=== PATIENT | male | born 1960 | race Caucasian/White ===

== ENCOUNTER → 2022-11-22 | Emergency (ER) | payer MEDICAID ==
[~2022-11-22] VITALS: Ht 177.8 cm; Wt 170.0 kg
[~2022-11-22] MED LIST: ALBU6.7H14 INH; ASCO-134 PO; ATOR20TA66 PO; BACL-11 PO; CEFA2PLA9 IV; CHLO1LIQ2 PO; DOCU283E RC; FLO0.4C PO; FOLI1TAB27 PO; HYDR-3965 PO; HYDROcodone/acetaminophen 5mg/325mg tablet PO PRN; INSU100V43 SQ; INSU100V56 SQ; LACT1CAP26 PO; LIDO5CRE18 TOP; LOP25T PO; LORA-269 PO; LYR75C PO; MELA3TAB70 PO; ONDA4TAB12 PO; POLY119P2 PO; RIFA300C9 PO; SENN-263 PO; SIME80TA15 PO; SODI473S26 TOP; ZINC220C7 PO; acetaminophen 325mg tablet PO PRN; acetaminophen 650mg rectal suppository RC PRN; bisacodyl 10mg suppository rectal RC PRN; cefazolin/dext.iso 2gm/100ml 100 ML IV SCH; diphenhydrAMINE 25mg capsule PO PRN; mag hydrox/Alum hydrox/simeth 30ml oral suspension PO PRN; magnesium 4gm in 100ml NS 100 ML IV PRN; magnesium Cl slow-release 64mg tablet PO PRN; magnesium hydroxide 30ml (MOM) UD suspension PO PRN; morphine 2 MG/ML inj. syringe IV PRN; morphine 4 MG/ML inj SYRINge IV PRN; ondansetron/PF 4mg/2ml inj IV ONE; ondansetron/PF 4mg/2ml inj IV PRN; potassium Cl 20 mEq SR tablet PO PRN; potassium Cl 40MEQ/1/2NS 520ml 520 ML IV PRN; rifampin 300mg capsule PO SCH
[2022-11-22] MEDS: ringers solution, lacted 1,000 ML IV SCH (16:20)
[2022-11-22 16:45] LABS: BASOPHILS % (AUTO) 0.5 % (0-1); EOSINOPHILS # (AUTO) 0.3 X10'3 (0-0.9); EOSINOPHILS % (AUTO) 3.5 % (0-6); HEMATOCRIT 35.8 % (42.0-52.0); HEMOGLOBIN 11.8 g/dl (14.0-17.9); LYMPHOCYTES # (AUTO) 2.1 X10'3 (1.1-4.8); LYMPHOCYTES % (AUTO) 22.9 % (21-51); MEAN CORPUSCULAR HEMOGLOBIN 28.6 PG (27.0-31.0); MEAN CORPUSCULAR VOLUME 86.7 FL (78-98); MEAN PLATELET VOLUME 7.3 FL (7.4-10.4); MONOCYTES # (AUTO) 0.8 X10'3 (0-0.9); MONOCYTES % (AUTO) 8.6 % (2-12); NEUTROPHILS # (AUTO) 5.9 X10'3 (1.8-7.7); NEUTROPHILS % (AUTO) 64.5 % (42-75); PLATELET COUNT 392 X10'3 (140-440); RED BLOOD COUNT 4.13 X10'6 (4.70-6.10); RED CELL DISTRIBUTION WIDTH 17.9 % (11.5-14.5); WHITE BLOOD COUNT 9.1 X10'3 (4.5-11.0)
[2022-11-22 16:56] LABS: ALANINE AMINOTRANSFERASE 56 U/L (12-78); ALBUMIN 2.4 G/DL (3.4-5.0); ALBUMIN/GLOBULIN RATIO 0.5 (1.1-1.5); ALKALINE PHOSPHATASE 432 IU/L (46-116); ANION GAP 10 (8-16); ASPARTATE AMINO TRANSFERASE 39 U/L (10-37); BILIRUBIN,TOTAL 0.1 MG/DL (0.1-1.0); BLOOD UREA NITROGEN 26 MG/DL (7-18); BUN/CREATININE RATIO 30.2 (5.4-32.0); CALCIUM 8.9 MG/DL (8.5-10.1); CHLORIDE 103 MMOL/L (99-107); CREATININE 0.86 MG/DL (0.60-1.10); GLUCOSE 267 MG/DL (70-104); POTASSIUM 4.4 MMOL/L (3.5-5.1); SODIUM 135 MMOL/L (135-145); TOTAL CARBON DIOXIDE 22.3 MMOL/L (24-32); TOTAL PROTEIN 7.5 G/DL (6.4-8.2); eGFR > 90 ML/MIN
[2022-11-22] MEDS: normal saline 1000ml 1,000 ML IV SCH (17:00)
--- NOTE | 2022-11-22 17:09 | NUR ---
first contact. ao4 no resp issues no cp/sob. coccyx dressing dry and intact. ok to feed per provider
[2022-11-22] MEDS: ceFAZolin/D5W- 1GM premix 50 ML IV SCH (17:15)
--- NOTE | 2022-11-22 18:33 | NUR ---
report to vince glasgow for continuation of care
[2022-11-22] MEDS: K and/or MAG REPLACEMENT MC SCH (20:00)
[2022-11-22] MEDS: heparin, porcine 5000 units/ml vial SQ SCH (21:02)
[2022-11-22] MEDS: docusate sod 100mg capsule PO SCH (21:02)
[2022-11-22] MEDS: HYDROcodone/acetaminophen 10/325mg tab PO PRN (21:27)
--- NOTE | 2022-11-22 21:30 | NUR ---
PT WAS PROVIDED PO MEDICATION (MEDICATION ADMINISTRATION WAS APPROVED BY [facility]), AND A SANDWHICH WAS GIVEN TO THE PT WELL. PT WAS SAT UP IN [facility] TO EAT THE SANDWHICH, AND THEN ASKED TO BE LOWERED DOWN. PT WAS EDUCATED THAT HE WAS UNABLE TO BE LAID DOWN DUE TO HIM CURRENTLY EATING AND HIS INCREASED RISK OF ASPIRATION. THE PT WAS TOLD THAT HE WOULD HAVE TO WAIT 15 MINUTES BEFORE HE WAS LAID BACK IN BED. OTHER PT TASKS WERE COMPLETED WHILE I WAS IN THE ROOM. THE PT STARTED YELLING AT ME AND REFERRING TO ME A BITCH BECAUSE I WOULDN'T PUT HIS HEAD OF THE BED DOWN. PT WAS SPOKEN TO ABOUT HIS LANGUAGE, AND WAS TOLD TO REFRAIN FROM YELLING AT STAFF. CHARGE NURSE NOTIFIED.
[2022-11-23] VITALS (8 sets, daily range): BP systolic 121–151; BP diastolic 74–92
[2022-11-23] MEDS: ceFAZolin/D5W- 1GM premix 50 ML IV SCH ×2 (00:08→08:04)
[2022-11-23] MEDS: ringers solution, lacted 1,000 ML IV SCH ×2 (02:20→07:39)
[2022-11-23 04:41] LABS: BASOPHILS % (AUTO) 0.4 % (0-1); EOSINOPHILS # (AUTO) 0.3 X10'3 (0-0.9); EOSINOPHILS % (AUTO) 3.5 % (0-6); HEMATOCRIT 36.5 % (42.0-52.0); HEMOGLOBIN 11.8 g/dl (14.0-17.9); LYMPHOCYTES # (AUTO) 2.4 X10'3 (1.1-4.8); LYMPHOCYTES % (AUTO) 27.8 % (21-51); MEAN CORPUSCULAR HGB CONC 32.5 g/dL (33.0-36.5); MEAN CORPUSCULAR VOLUME 86.3 FL (78-98); MEAN PLATELET VOLUME 7.2 FL (7.4-10.4); MONOCYTES # (AUTO) 0.9 X10'3 (0-0.9); MONOCYTES % (AUTO) 10.7 % (2-12); NEUTROPHILS # (AUTO) 5.1 X10'3 (1.8-7.7); NEUTROPHILS % (AUTO) 57.6 % (42-75); PLATELET COUNT 343 X10'3 (140-440); RED BLOOD COUNT 4.22 X10'6 (4.70-6.10); RED CELL DISTRIBUTION WIDTH 17.9 % (11.5-14.5); WHITE BLOOD COUNT 8.8 X10'3 (4.5-11.0)
[2022-11-23 05:07] LABS: ALANINE AMINOTRANSFERASE 50 U/L (12-78); ALBUMIN 2.5 G/DL (3.4-5.0); ALBUMIN/GLOBULIN RATIO 0.5 (1.1-1.5); ALKALINE PHOSPHATASE 403 IU/L (46-116); ANION GAP 9 (8-16); ASPARTATE AMINO TRANSFERASE 31 U/L (10-37); BILIRUBIN,TOTAL 0.1 MG/DL (0.1-1.0); BLOOD UREA NITROGEN 25 MG/DL (7-18); BUN/CREATININE RATIO 33.8 (5.4-32.0); CALCIUM 9.2 MG/DL (8.5-10.1); CHLORIDE 104 MMOL/L (99-107); CREATININE 0.74 MG/DL (0.60-1.10); GLUCOSE 102 MG/DL (70-104); MAGNESIUM 1.8 MG/DL (1.5-2.4); PHOSPHORUS 4.5 MG/DL (2.3-4.5); POTASSIUM 4.3 MMOL/L (3.5-5.1); SODIUM 137 MMOL/L (135-145); TOTAL CARBON DIOXIDE 24.3 MMOL/L (24-32); TOTAL PROTEIN 7.4 G/DL (6.4-8.2); eGFR > 90 ML/MIN
[2022-11-23] MEDS: normal saline 1000ml 1,000 ML IV SCH (07:17)
[2022-11-23] MEDS: K and/or MAG REPLACEMENT MC SCH (07:37)
[2022-11-23] MEDS: heparin, porcine 5000 units/ml vial SQ SCH (07:38)
[2022-11-23] MEDS: docusate sod 100mg capsule PO SCH (07:48)
[2022-11-23] MEDS: HYDROcodone/acetaminophen 10/325mg tab PO PRN ×2 (07:53→12:07)
--- NOTE | 2022-11-23 11:10 | NUR ---
pt in ER rm #[id number], recd. report from ENRIQUETA Wilson, pt will be going to room 1336A before returning to [facility] as pt's sx. cancelled.
--- NOTE | 2022-11-23 11:15 | NUR ---
pt came in on hospital bed, VSS and pt is in stable condition, pt c/o of pain in his neck, let him know that I will give him his [employer] [address].
--- NOTE | 2022-11-23 13:45 | NUR ---
gave pt report to Anila díaz [facility] that pt will be coming back.
--- NOTE | 2022-11-23 14:05 | NUR ---
Cynthia barajas picked up and returned to [facility] via [facility].
== END | disposition admitted as inpatient to this hospital (09) ==
LOC: ER 16:10 → ED HOLD 17:14 → UNDOADMIN 17:14
DX: M46.28 Osteomyelitis of vertebra, sacral and sacrococcygeal region (principal); Z20.822 Contact with and (suspected) exposure to COVID-19; M46.22 Osteomyelitis of vertebra, cervical region; R19.5 Other fecal abnormalities; E11.9 Type 2 diabetes mellitus without complications; F15.20 Other stimulant dependence, uncomplicated; I10 Essential (primary) hypertension; Z87.891 Personal history of nicotine dependence
CPT/HCPCS: 36415; 71045; 80053; 83735; 84100; 85025; 85610; 86885; 86900; 86901; 87811; 93005; 96361; 96365; 96375; 99285; J0690; J1644; J2270; J2405; J7120; 96360; 96366; G0378

== ENCOUNTER 2022-12-14 12:45 | Inpatient (IN) | payer MEDICAID ==
[~2022-12-14] VITALS: Ht 177.8 cm; Wt 83.0 kg
[~2022-12-14 12:45] MED LIST changes: -CEFA2PLA9 IV; +COLL30OI TOP; -DOCU283E RC; +DOCUMENT DATE & TIME OF BETA-BLOCKER PO ONE; +ENOX80SY7 SUBCUT; -HYDROcodone/acetaminophen 5mg/325mg tablet PO PRN; -INSU100V56 SQ; +INSU100V9 SQ; -ONDA4TAB12 PO; -RIFA300C9 PO; -acetaminophen 325mg tablet PO PRN; -acetaminophen 650mg rectal suppository RC PRN; -bisacodyl 10mg suppository rectal RC PRN; +ceFOXitin 2GM-NS 100mL ADDvant 100 ML IV ONE; -cefazolin/dext.iso 2gm/100ml 100 ML IV SCH; -diphenhydrAMINE 25mg capsule PO PRN; +famotidine 20mg tablet PO ONE; -mag hydrox/Alum hydrox/simeth 30ml oral suspension PO PRN; -magnesium 4gm in 100ml NS 100 ML IV PRN; -magnesium Cl slow-release 64mg tablet PO PRN; -magnesium hydroxide 30ml (MOM) UD suspension PO PRN; -morphine 2 MG/ML inj. syringe IV PRN; -morphine 4 MG/ML inj SYRINge IV PRN; -ondansetron/PF 4mg/2ml inj IV ONE; -ondansetron/PF 4mg/2ml inj IV PRN; -potassium Cl 20 mEq SR tablet PO PRN; -potassium Cl 40MEQ/1/2NS 520ml 520 ML IV PRN; -rifampin 300mg capsule PO SCH; +ringers solution, lacted 1,000 ML IV SCH
[2022-12-21] VITALS (24 sets, daily range): BP systolic 100–139; BP diastolic 57–91
[2022-12-21] MEDS ORDERED: ringers solution, lacted 1,000 ML IV SCH ×2 (05:00→11:40)
[2022-12-21] MEDS ORDERED: famotidine 20mg tablet PO ONE (05:30)
[2022-12-21] MEDS ORDERED: ceFOXitin 2GM-NS 100mL ADDvant 100 ML IV ONE (05:30)
[2022-12-21] MEDS ORDERED: DOCUMENT DATE & TIME OF BETA-BLOCKER PO ONE (05:30)
[2022-12-21] MEDS ORDERED: hydrALAZINE 20mg/ml inj. IV PRN (11:40)
[2022-12-21] MEDS ORDERED: morphine 4 MG/ML inj SYRINge IV PRN (11:40)
[2022-12-21] MEDS ORDERED: fentaNYL/PF 50MCG/1 ML 2ML syringe IV PRN (11:40)
[2022-12-21] MEDS ORDERED: ondansetron/PF 4mg/2ml inj IV PRN ×2 (11:40→14:55)
[2022-12-21] MEDS ORDERED: labetalol 20mg/4ml (5mg/ml) syringe IV PRN (11:40)
[2022-12-21] MEDS ORDERED: morphine 2 MG/ML inj. syringe IV PRN (11:40)
[2022-12-21] MEDS ORDERED: HYDROmorphone 1 mg/ml syringe IV STA (14:38)
[2022-12-21] MEDS ORDERED: Lidocaine Cream TOP PRN (14:50)
[2022-12-21] MEDS ORDERED: LORazepam 1 MG tablet PO PRN (14:50)
[2022-12-21] MEDS ORDERED: albuterol 2.5 MG/3 ML nebule NEB PRN (14:50)
[2022-12-21] MEDS ORDERED: dextrose 50%-water 50ml dispensing syringe IV PRN ×2 (14:55)
[2022-12-21] MEDS ORDERED: potassium Cl 40MEQ/1/2NS 520ml 520 ML IV PRN (14:55)
[2022-12-21] MEDS ORDERED: acetaminophen 325mg tablet PO PRN (14:55)
[2022-12-21] MEDS ORDERED: insulin Lispro (HumaLOG) vial - multi-dose SQ SCH (14:55)
[2022-12-21] MEDS ORDERED: potassium Cl 20 mEq SR tablet PO PRN ×2 (14:55)
[2022-12-21] MEDS ORDERED: glucagon, human recombinant 1mg kit SUBCUT PRN (14:55)
[2022-12-21] MEDS ORDERED: mag hydrox/Alum hydrox/simeth 30ml oral suspension PO PRN (14:55)
[2022-12-21] MEDS ORDERED: HYDROmorphone/PF 0.2 MG/ML SYRINGE IV PRN (14:55)
[2022-12-21] MEDS ORDERED: DEXTROSE 15 GM of carb/4 tabs (each vial/BOTTLE has 4 tablets) PO PRN ×2 (14:55)
[2022-12-21] MEDS ORDERED: MESSAGE TO PHARMACY PO ONE (14:55)
[2022-12-21] MEDS ORDERED: magnesium 4gm in 100ml NS 100 ML IV PRN (14:55)
[2022-12-21] MEDS ORDERED: dexamethasone sod phosphate 10mg/ml inj ONE (15:00)
[2022-12-21] MEDS ORDERED: sevoflurane 250ml liquid IH ONE (15:00)
[2022-12-21] MEDS ORDERED: PHENYLephrine 10mg/ml 5ml injection IV ONE (15:00)
[2022-12-21] MEDS ORDERED: midazolam 1 mg/ML 2ml injection ONE (15:13)
[2022-12-21] MEDS ORDERED: fentaNYL/PF 50MCG/1 ML 2ML syringe ONE ×2 (15:13→16:32)
[2022-12-21] MEDS ORDERED: rocuronium 10mg/ml inj IV ONE ×2 (15:24→16:14)
[2022-12-21] MEDS ORDERED: propofol inj 20 ML IV ONE (15:24)
[2022-12-21] MEDS ORDERED: polyethylene glycol 3350 17gm powd pack PO PRN (15:26)
[2022-12-21] MEDS ORDERED: LIDOcaine 1%/PF 5ML 10 MG/ML VIAL ONE (15:26)
[2022-12-21] MEDS ORDERED: ondansetron/PF 4mg/2ml inj ONE (15:26)
[2022-12-21] MEDS ORDERED: neostigmine methylsulfate 1 MG/ML 10ml vial ONE (15:27)
[2022-12-21] MEDS ORDERED: glycopyrrolate 0.2mg/ml inj ONE (15:27)
[2022-12-21] MEDS: baclofen 10mg tablet PO SCH ×2 (16:00→23:45)
--- NOTE | 2022-12-21 16:55 | NUR ---
Received from OR via [facility], accompanied by Anesthesiologist DR BOGGS and report given by Anesthesiolgist. NPT IS AWAKE, FOLLOWING COMMANDS AND ANSWERING QUESTIONS APPROPRIATELY. PT PLACED ON BEDSIDE MONITOR, VSS. PT IN SR WITH RATE IN 80'S. PT RECEIVING 8L O2 TO MASK AND TOLERATING WELL WITH O2 SAT >96%. PT HAS PICC TO LEFT UPPER ARM WITH LR INFUSING ORDERED. PT HAS NEW COLOSTOMY TO RT UPPER ABD. STOMA IS BEEFY RED IN COLOR AND THERE IS SMALL AMOUNT OF SANGUINEOUS DRAINAGE NOTED IN BAG. PT HAS C-COLLAR ON FROM PREVIOUS SURGERY AND HOSPITAL. PT IS ABLE TO MOVE ALL EXTREMITIES. PT STATES PAIN IS AT TOLERABLE LEVEL AT THIS TIME. WILL CONTINUE TO ASSESS
[2022-12-21] MEDS: simethicone 80mg chew tab PO SCH ×2 (17:00→20:35)
[2022-12-21] MEDS: fentaNYL/PF 50MCG/1 ML 2ML syringe IV PRN ×2 (17:23→17:52)
--- NOTE | 2022-12-21 19:36 | NUR ---
REPORT GIVEN TO DUARTE ROBISON AND ALL QUESTIONS ANSWERED. PATIENT TRANSFERRED TO SURG. LABELED BELONGINGS PRESENT AND DELIVERED TO ROOM. RN PRESENT ALL CRITERIA FOR TRANSFER BACK TO THE FLOOR HAS BEEN ACHIEVED. VSS. PAIN AT A TOLERABLE LEVEL. BED LOW, CALL LIGHT PRESENT AND 2 RAILS DOWN. RN AWARE THAT PATIENT HAS ARRIVED. TO ACCEPT CARE OF PATIENT.
[2022-12-21] MEDS: K and/or MAG REPLACEMENT MC SCH (19:43)
[2022-12-21] MEDS: metoprolol tartrate 25mg tablet PO SCH ×2 (20:00→20:36)
[2022-12-21] MEDS: docusate sod 100mg capsule PO SCH (20:37)
[2022-12-21] MEDS: pregabalin 75mg capsule PO SCH (20:37)
[2022-12-21] MEDS: chlorhexidine gluconate 15ml Cup****oral rinse MM SCH (20:43)
[2022-12-21] MEDS ORDERED: Melatonin 3mg tablet PO PRN (21:00)
[2022-12-21] MEDS ORDERED: atorvastatin 20mg tablet PO SCH (21:00)
[2022-12-21] MEDS ORDERED: insulin glargine (Lantus) pen - multi-dose SQ SCH (21:00)
[2022-12-22 00:15] VITALS: BP 96/57
[2022-12-22] MEDS: HYDROmorphone inj. 0.5 MG/0.5 ML DISP.SYRIN IV PRN ×3 (01:14→12:59)
[2022-12-22 02:00] VITALS: BP 103/60
--- NOTE | 2022-12-22 06:17 | NUR ---
Patient in room [facility] 346. I have received report from Cordell nichols and had the opportunity to ask questions and assume patient care.
[2022-12-22 06:35] VITALS: BP 110/64
[2022-12-22 06:36] LABS: BASOPHILS % (AUTO) 0.1 % (0-1); EOSINOPHILS % (AUTO) 0.1 % (0-6); HEMATOCRIT 38.9 % (42.0-52.0); HEMOGLOBIN 12.8 g/dl (14.0-17.9); LYMPHOCYTES # (AUTO) 1.7 X10'3 (1.1-4.8); LYMPHOCYTES % (AUTO) 13.7 % (21-51); MEAN CORPUSCULAR HEMOGLOBIN 28.8 PG (27.0-31.0); MEAN CORPUSCULAR HGB CONC 32.9 g/dL (33.0-36.5); MEAN CORPUSCULAR VOLUME 87.5 FL (78-98); MEAN PLATELET VOLUME 8.5 FL (7.4-10.4); MONOCYTES # (AUTO) 0.9 X10'3 (0-0.9); MONOCYTES % (AUTO) 6.9 % (2-12); NEUTROPHILS # (AUTO) 9.9 X10'3 (1.8-7.7); NEUTROPHILS % (AUTO) 79.2 % (42-75); PLATELET COUNT 259 X10'3 (140-440); RED BLOOD COUNT 4.44 X10'6 (4.70-6.10); RED CELL DISTRIBUTION WIDTH 15.1 % (11.5-14.5); WHITE BLOOD COUNT 12.5 X10'3 (4.5-11.0)
--- NOTE | 2022-12-22 06:42 | NUR ---
PAGER ID: [phone] MESSAGE: DorisB- Ishan Verde- received report pt came from [facility] with PICC. ok to use?- Shashi [phone]
[2022-12-22 06:54] LABS: ALANINE AMINOTRANSFERASE 86 U/L (12-78); ALBUMIN/GLOBULIN RATIO 0.7 (1.1-1.5); ALKALINE PHOSPHATASE 334 IU/L (46-116); ANION GAP 14 (8-16); ASPARTATE AMINO TRANSFERASE 27 U/L (10-37); BILIRUBIN,TOTAL 0.3 MG/DL (0.1-1.0); BLOOD UREA NITROGEN 27 MG/DL (7-18); BUN/CREATININE RATIO 28.4 (5.4-32.0); CALCIUM 9.2 MG/DL (8.5-10.1); CHLORIDE 105 MMOL/L (99-107); CREATININE 0.95 MG/DL (0.60-1.10); GLUCOSE 155 MG/DL (70-104); MAGNESIUM 1.8 MG/DL (1.5-2.4); SODIUM 140 MMOL/L (135-145); TOTAL CARBON DIOXIDE 21.2 MMOL/L (24-32); TOTAL PROTEIN 7.3 G/DL (6.4-8.2); eGFR 81 ML/MIN
[2022-12-22] MEDS: simethicone 80mg chew tab PO SCH ×2 (07:00→12:00)
[2022-12-22 07:30] LABS: HEMOGLOBIN A1C 5.8 % (4.5-6.2)
[2022-12-22] MEDS: chlorhexidine gluconate 15ml Cup****oral rinse MM SCH (08:00)
[2022-12-22] MEDS ORDERED: enoxaparin 40mg/0.4ml syringe SUBCUT SCH (08:00)
[2022-12-22] MEDS ORDERED: ZINC SULFATE 50 MG CAPSULE PO SCH (08:00)
[2022-12-22] MEDS: K and/or MAG REPLACEMENT MC SCH (08:00)
[2022-12-22] MEDS ORDERED: folic acid 1mg tablet PO SCH (08:00)
[2022-12-22] MEDS ORDERED: tamsulosin 0.4mg capsule PO SCH (08:00)
[2022-12-22] MEDS ORDERED: ascorbic acid 500mg tablet PO SCH (08:00)
[2022-12-22] MEDS: docusate sod 100mg capsule PO SCH (08:28)
[2022-12-22] MEDS: pregabalin 75mg capsule PO SCH (08:29)
[2022-12-22] MEDS: baclofen 10mg tablet PO SCH (08:29)
[2022-12-22] MEDS: metoprolol tartrate 25mg tablet PO SCH (08:29)
--- NOTE | 2022-12-22 08:47 | NUR ---
Patient non compliant and refusing care. Patient not allowing to have physical assessment completed. Patient states "I just want to sleep. You're not going to fucking do anything to me. I can do this shit at [facility]." Patient did allow to have colostomy bag burped as it had filled up with gas but did not allow any further assessment or care. Patient cussing and yelling. Patient stated "don't even wake me up. Give me my pain medication just right in here (patient pointing to IV). Will continue to monitor.
--- NOTE | 2022-12-22 10:55 | NUR ---
OSTOMY FACTS: Almost everyone has know of, or met, businessmen, entertainers, athletes, and people from all walks of life who have an ostomy. Ostomates (a person that has an ostomy) can ski, ride horses, bowl, and get healthy exercise in countless ways. Your usual activities of daily living can be resumed as soon as you are able. Gradually you will be able to wear the clothes worn before surgery. With modern pouches, nothing is noticeable under your clothing. It may be difficult at first to believe that an intimate relationship can be possible when one's body has been disfigured by surgery. This is not true. Love, fortunately, is not easily destroyed when it is based on genuine appreciation of a person as a thinking, feeling, reacting human being. AN OSTOMY IS NOT AN IMPAIRMENT!! DEFINITIONS: 1.OSTOMY: An opening that is created by a surgical procedure. The opening is called a "stoma". 2.STOMA: A surgical opening in the abdomen (belly) where intestine is brought through the abdominal wall and connected at the skin level. A stoma is shiny, wet and at first is dark purple but eventually turns pink, similar to the inside lining of your mouth. 3.COLON: A portion of the large bowel. 4.COLOSTOMY: A fecal diversion with an opening, (stoma) created anywhere along the colon. Making a connection between the colon and the abdominal wall. 5.ILLEOSTOMY: A fecal diversion with an opening, (stoma) created in the small intestine. Making a connection between the small intestine and the abdominal wall. 6.UROSTOMY: A urinary diversion with the ureters connected to a segment of the small bowel and one end is brought out and connected to the abdominal wall, creating a stoma. SHAPES and SIZES: "The stoma is usually round or oval. "It is anywhere from a dime to half dollar in size. "A stoma reaches its permanent size 6-8 weeks after surgery. PRODUCTS: 1.POUCH or APPLIANCE: An external device to contain stool or urine output and protect the skin around the stoma. It can be a one piece pouch or two pieces (a pouch and a wafer). 2.BARRIER: Substance that is used to protect the skin around the stoma from drainage and adhesive. 3.SKIN PREP or SEALANT: Product applied to the skin to reduce injury from moisture, drainage, or repeated pouch removal. Available in spray or wipes. 4.CLOSURE or CLAMP: A device used to close the bottom of a drainable pouch. 5.BRIDGE or [place]: A piece of plastic placed under a loop of bowel on the skins surface, to secure the bowel in place while the skin heals. POUCH CHANGE PROCEEDURE: 1.Assemble all the supplies "1 or 2 piece appliance "Ostomy paste (if needed) "Ostomy powder (if needed) "Skin prep wipes ( not recommended with coloplast products) "Moist wash cloth or cotton balls 2.Remove plastic center and paper backing from pouch. If pouch or wafer is not precut, use the sizing guide, or plastic backing from pouch to make a pattern. Do this by placing the paper over the stoma and trace it, or draw a pattern. Cut the wafer to fit and set it aside. 3.Remove old pouch by lifting up on tape while pressing skin down away from the tape. If there is a clip on your pouch, remove it and save it. 4.Clean skin or stoma with moistened wash cloth or cotton balls. Place a clean cotton ball over stoma hole to catch any drainage. Let skin dry. 5.For grooves or uneven areas in the skin- apply ostomy paste and sprinkle with ostomy powder, then gently shape the past so the area around the stoma is smooth and as flat as possible. Wipe off or blow away excess. Blot powder with skin prep wipe (DO NOT wipe powder). Let dry until no longer sticky. 6.For irritated or reddened skin- sprinkle ostomy powder on red or irritated area. Wipe off or blow away excess. Blot powder with skin prep wipe (DO NOT wipe powder). Let dry until no longer sticky. 7.Apply skin prep wipe to skin to which the pouch and tape will adhere. Let dry until no longer sticky. 8.If you have a one piece appliance- apply pouch so it is centered around the stoma. No skin should be exposed to stool. All skin should be covered by paste or pouch. 9.If you have a two piece appliance- Apply the wafer as described above, then snap or stick pouch onto wafer. Check to make sure wafer and pouch are securely connected. 10.Place clip on bottom of pouch. 11.Empty pouch when 1/3 full. OSTOMY SKIN CARE: "Good health care and nutrition are essential for healthy skin. "Usually a correct pouch size will prevent skin breakdown. "Use warm water and soap for skin cleansing. "Do not use creams or oil based products on skin around the stoma. This will prevent the appliance from sticking. "Use skin prep around the stoma. IT CAN TAKE 24 HOURS TO SEVERAL DAYS FOR SKIN TO HEAL. IF IT IS NOT RESOLVING, OR GETTING WORSE, CALL YOUR PRIMARY CARE DOCTOR. Addendum: 12/22/22 at 1056 by Genia Miguel LVN Amended: Links added.
[2022-12-22 11:42] VITALS: BP 130/56
--- NOTE | 2022-12-22 16:05 | NUR ---
Report was called to Price Johnson LVN. Patient dc'd with all personal belongings which included electronic pad. Patient transferred via ambulance with x2 ambulance personnel. Patient was alert and oriented at time of dc with no complaints.
[2022-12-23] MEDS ORDERED: Collagenase Oint* (Santyl Oint*) TP SCH (08:00)
== END 2022-12-22 15:58 | DRG 950 ==
LOC: PAS IN 12-21 09:34 → SUR 3N 12-21 19:20
PROVIDERS: ADMIT Surgery; ATTEND Surgery
PROC: 0D1K0Z4 Bypass Ascending Colon to Cutaneous, Open Approach (ICD-10-PCS; principal; 2022-12-21 15:00)
DX: L89.150 Pressure ulcer of sacral region, unstageable (principal); G82.50 Quadriplegia, unspecified; I50.9 Heart failure, unspecified; E11.69 Type 2 diabetes mellitus with other specified complication; I11.0 Hypertensive heart disease with heart failure; N31.9 Neuromuscular dysfunction of bladder, unspecified; J43.9 Emphysema, unspecified; M46.22 Osteomyelitis of vertebra, cervical region; F41.9 Anxiety disorder, unspecified; Z79.84 Long term (current) use of oral hypoglycemic drugs; Z79.4 Long term (current) use of insulin; Z79.899 Other long term (current) drug therapy; Z87.891 Personal history of nicotine dependence
CPT/HCPCS: 36415; 80053; 82948; 83036; 83735; 85025; 86885; 86900; 86901; 94760; A4421; A4618; A6224; A6253; A6449; A7000; G0378; J0694; J1100; J1170; J1650; J1815; J2250; J2270; J2370; J2405; J2704; J2710; J3010; J3490; J7030; J7120

== ENCOUNTER 2023-03-09 06:53 | Day surgery (SDC) | payer OTHER ==
[~2023-03-09] VITALS: Ht 177.8 cm; Wt 74.8 kg
[2023-03-09] VITALS (8 sets, daily range): BP systolic 100–121; BP diastolic 64–78
[~2023-03-09 06:53] MED LIST changes: -DOCUMENT DATE & TIME OF BETA-BLOCKER PO ONE; -ceFOXitin 2GM-NS 100mL ADDvant 100 ML IV ONE; -famotidine 20mg tablet PO ONE; -ringers solution, lacted 1,000 ML IV SCH
[2023-03-09] MEDS ORDERED: ceFAZolin inj. 2,000 MG in dextrose 5%-water 100 ML IV ONE (07:25)
[2023-03-09] MEDS ORDERED: ceFAZolin inj. 2,000 MG in normal saline soln 50 ML IV ONE (07:25)
[2023-03-09 07:58] LABS: BASOPHILS # (AUTO) 0.1 X10'3 (0-0.2); BASOPHILS % (AUTO) 1.3 % (0-1); EOSINOPHILS # (AUTO) 0.3 X10'3 (0-0.9); EOSINOPHILS % (AUTO) 3.5 % (0-6); HEMATOCRIT 30.9 % (42.0-52.0); LYMPHOCYTES # (AUTO) 2.1 X10'3 (1.1-4.8); LYMPHOCYTES % (AUTO) 21.4 % (21-51); MEAN CORPUSCULAR HEMOGLOBIN 27.2 PG (27.0-31.0); MEAN CORPUSCULAR HGB CONC 32.5 g/dL (33.0-36.5); MEAN CORPUSCULAR VOLUME 83.8 FL (78-98); MEAN PLATELET VOLUME 6.8 FL (7.4-10.4); MONOCYTES % (AUTO) 10.1 % (2-12); NEUTROPHILS # (AUTO) 6.4 X10'3 (1.8-7.7); NEUTROPHILS % (AUTO) 63.7 % (42-75); PLATELET COUNT 345 X10'3 (140-440); RED BLOOD COUNT 3.69 X10'6 (4.70-6.10); RED CELL DISTRIBUTION WIDTH 17.3 % (11.5-14.5)
[2023-03-09] MEDS ORDERED: MIDO5TAB4 PO (08:04)
[2023-03-09] MEDS ORDERED: ESCI5TAB17 PO (08:04)
[2023-03-09] MEDS ORDERED: HYDR-3973 PO (08:04)
[2023-03-09] MEDS ORDERED: PROC-8 PO (08:04)
[2023-03-09] MEDS ORDERED: heparin sodium, porcine/PF 100unit/ml 5ML syringe ONE (08:52)
[2023-03-09] MEDS ORDERED: heparin 1,000unit/ml 10ml vial 10 ML ONE (08:52)
[2023-03-09] MEDS ORDERED: HYDROcodone/acetaminophen 10/325mg tab PO PRN (12:15)
== END 2023-03-09 13:30 ==
LOC: SSTAY O 06:53
PROVIDERS: ATTEND Radiology Vascular & Interventional Radiology
DX: T82.41XA Breakdown (mechanical) of vascular dialysis catheter, initial encounter (principal); E11.22 Type 2 diabetes mellitus with diabetic chronic kidney disease; I13.2 Hypertensive heart and chronic kidney disease with heart failure and with stage 5 chronic kidney disease, or end stage renal disease; N18.6 End stage renal disease; I50.9 Heart failure, unspecified; F41.9 Anxiety disorder, unspecified; G82.50 Quadriplegia, unspecified; Z98.890 Other specified postprocedural states; Z87.891 Personal history of nicotine dependence; Z72.89 Other problems related to lifestyle; F15.90 Other stimulant use, unspecified, uncomplicated; Z79.899 Other long term (current) drug therapy; Z93.3 Colostomy status; Y83.8 Other surgical procedures as the cause of abnormal reaction of the patient, or of later complication, without mention of misadventure at the time of the procedure; Y92.89 Other specified places as the place of occurrence of the external cause
CPT/HCPCS: 36415; 36581; 77001; 85025; 85610; C1750; C1769; J1644; J7030; A9270; J1642